=== PATIENT | male | born 1955 | race Caucasian/White ===

== ENCOUNTER 2023-10-15 01:33 | Emergency (ER) | payer MEDICARE, MEDICAID ==
[~2023-10-15] VITALS: Ht 167.6 cm; Wt 58.0 kg
[2023-10-15 01:55] VITALS: O2SAT 100
[2023-10-15 02:45] VITALS: BP 162/87; PULSE 99; RESP 24; TEMP 98.4
[2023-10-15 03:41] LABS: BASOPHILS % 0.1 % (0.0-2.0); HEMATOCRIT. 37.3 % (42.0-52.0); HEMOGLOBIN. 12.5 g/dL (14.0-18.0); LYMPHOCYTES % 5.8 % (20.0-50.0); MEAN CORPUSCULAR HEMOGLOBIN 31.1 pg (28.0-32.0); MEAN CORPUSCULAR HGB CONC 33.5 g/dL (31.0-37.0); MEAN PLATELET VOLUME 7.9 fl (7.4-10.4); MONOCYTES % 5.1 % (2.0-8.0); PLATELET 230 x1000/uL (130-400); RED BLOOD CELL COUNT 4.01 mill/uL (4.7-6.1); WHITE BLOOD COUNT 10.7 x1000/uL (4.5-11.0)
[2023-10-15 03:54] LABS: DIFFERENTIAL COMMENT 1; POTASSIUM 3.7 mEq/L (3.5-5.1)
[2023-10-15 04:00] LABS: CREATININE 2.4 mg/dL (0.6-1.3)
[2023-10-15 04:09] LABS: CLARITY URINE TURBID (CLEAR); COLOR URINE YELLOW (YELLOW); GLUCOSE URINE NEGATIVE (NEGATIVE); KETONES URINE NEGATIVE (NEGATIVE); LEUKOCYTE ESTERASE URINE 3+ (NEGATIVE); NITRITE URINE POSITIVE (NEGATIVE); OCCULT BLOOD URINE 2+ (NEGATIVE); PH URINE 6.5 (4.5-8.0); PROTEIN URINE 1+ (NEGATIVE); SPECIFIC GRAVITY URINE 1.012 (1.005-1.030); UROBILINOGEN URINE 0.2 E.U./dL (0.2-1.0)
[2023-10-15 04:57] LABS: BACTERIA URINE 3+; SQUAMOUS EPITHELIAL CELL URINE 1+ /lpf (RARE/1+); WBC URINE TNTC /hpf (0-2)
[2023-10-15] MEDS ORDERED: CEPH500C2 MT (06:11)
== END 2023-10-15 06:30 | disposition home or self-care (01) ==
LOC: ER 02:16
DX: R33.9 Retention of urine, unspecified (principal); N39.0 Urinary tract infection, site not specified; N18.6 End stage renal disease; Z99.2 Dependence on renal dialysis; Z98.890 Other specified postprocedural states
CPT/HCPCS: 36415; 51702; 80048; 81003; 85025; 99284

== ENCOUNTER 2024-04-02 02:33 | Emergency (ER) | payer MEDICARE, MEDICAID ==
[~2024-04-02] VITALS: Ht 165.1 cm; Wt 65.0 kg
[~2024-04-02 02:33] MED LIST: CEPH500C2 MT
[2024-04-02 02:50] VITALS: BP 157/86; PULSE 123; RESP 18; TEMP 98; O2SAT 99
== END 2024-04-02 03:28 | disposition home or self-care (01) ==
LOC: ER 03:03
DX: R33.9 Retention of urine, unspecified (principal); E11.9 Type 2 diabetes mellitus without complications; I10 Essential (primary) hypertension; Z98.890 Other specified postprocedural states
CPT/HCPCS: 51702; 99281; 99284